=== PATIENT | male | born 1995 | race Caucasian/White ===

== ENCOUNTER 2019-03-19 05:17 | Emergency (ER) | payer OTHER ==
[~2019-03-19] VITALS: Ht 157.5 cm; Wt 69.0 kg
[2019-03-19] MEDS ORDERED: IBUPROFEN 600MG TABLET PO ONE (06:30)
[2019-03-19 06:42] VITALS: BP 143/86
== END 2019-03-19 07:18 | disposition home or self-care (01) ==
LOC: ER 05:17
DX: S60.221A Contusion of right hand, initial encounter (principal); Y04.0XXA Assault by unarmed brawl or fight, initial encounter; Y93.89 Activity, other specified; Y92.018 Other place in single-family (private) house as the place of occurrence of the external cause
CPT/HCPCS: 73130; 99283